=== PATIENT | male | born 1995 | race Caucasian/White ===

== ENCOUNTER 2016-07-26 00:51 | Emergency (ER) | payer OTHER ==
[~2016-07-26] VITALS: Ht 160 cm; Wt 83.9 kg
[2016-07-26] MEDS ORDERED: ACCUNEB SO1.25 MG/1 INH (00:59)
[2016-07-26] MEDS ORDERED: ALBUTEROL2.5 MG/31 INH (02:31)
[2016-07-26] MEDS ORDERED: VENTOLIN HFA 1818 GM INH (02:31)
[2016-07-26 02:37] VITALS: BP 127/63
== END 2016-07-26 02:37 | disposition home or self-care (01) ==
LOC: ER 00:51
DX: J45.901 Unspecified asthma with (acute) exacerbation (principal)